=== PATIENT | female | born 1945 | race Two or more races ===

== ENCOUNTER 2020-08-11 18:40 | Emergency (ER) | payer MEDICAID, OTHER ==
[~2020-08-11] VITALS: Ht 147.3 cm; Wt 68.0 kg
[2020-08-11 19:12] VITALS: BP 162/76
--- NOTE | 2020-08-11 19:21 | NUR ---
Per son at bedside, pt had injury to her R thumb x3 weeks ago. Today is her first visit to the ED in regards to pt R thumb. Pt has not been taking any medications for her pain. There is obvious deformity to the R thumb. Circulation and sensory nerves are intact, but patient is unable to move the digit. Compared to the L thumb, the R thumb is swollen.
--- NOTE | 2020-08-11 19:52 | Emergency Room Report ---
History of Present Illness General Chief Complaint: Upper Extremity Injury Present Illness HPI 75 YO female presents to the ED c/o 09/29 in severity tenderness, swelling, and obvious deformity of the right thumb.s/p fall 3 weeks ago. denies hitting her head, Denies midline neck or back pain. Denies numbness tingling or loss of sensation or gross motor movements of the extremities, incontinence of bowel or bladder. Denies CP, Palpitations, LOC, AMS, dizziness, Changes in Vision, weakness or a sudden severe headache. hx of DM and HTN. 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 Patient History Past Medical History: DM, HTN Past Surgical History: none Pertinent Family History: none Now: No Immunizations: UTD Reviewed Nursing Documentation: PMH: Agreed; PSxH: Agreed Review of Systems All Other Systems: negative except mentioned in HPI Physical Exam Vital Signs Date Time Temp Pulse Resp B/P (MAP) Pulse Ox O2 Delivery O2 Flow Rate FiO2 08/11/20 19:12 98.4 16 162/76 (104) 100 Room Air Sp02 EP Interpretation: reviewed, normal General Appearance: no apparent distress, alert, GCS 15, non-toxic Head: normocephalic, atraumatic Eyes: bilateral eye normal inspection, bilateral eye PERRL ENT: hearing grossly normal, normal voice Neck: full range of motion Respiratory: lungs clear, normal breath sounds, speaking full sentences Cardiovascular #1: regular rate, rhythm, normal capillary refill Musculoskeletal: gait/station normal, tender - Right thumb, swelling - Right thumb at DIP joint. , other - limited ROM of the right thumb Neurologic: alert, motor strength/tone normal, oriented x3, sensory intact, responsive, speech normal Psychiatric: judgement/insight normal Skin: no rash, normal color Procedures Joint Reduction Joint Reduction : Consent: Verbal Joint Reduction Site: other - Right Thumb PIP joint Procedural Sedation: No Reduction Attempts: One Pre-Procedure NV Exam: Yes Post-Procedure NV Exam: Yes Post Joint Reduction Film: joint not reduced Patient Tolerated: Well Complications: None Progress Pt. received local anesthesia / digital block of the right thumb using 1% Lidocaine plain. After trying to reduce the joint with no success the pt. then admitted that injury actually occurred 3 weeks ago. Medical Decision Making PA Attestation Dr. Gan Is my supervising Physician whom patient management has been discussed with. Diagnostic Impression: Primary Impression: Fracture dislocation of thumb Qualified Codes: S62.501A - Fracture of unspecified phalanx of right thumb, initial encounter for closed fracture ER Course Pt. presents to the ED c/o finger deformity and pain s/p mechanical fall. Ddx considered but are not limited to Fracture, dislocation, contusion, Sprain/Strain/Spasm, Vital signs: are WNL, pt. is afebrile H&PE are most consistent with musculoskeletal injury will perform imaging to r/o fractures/dislocations. ORDERS: - X-ray Right hand 3 views - negative for fx, Dislocation, or significant soft tissue injury, per preliminary read in ED, and signed by ROMAN Seaman, my supervising physician has reviewed, and agrees with my interpretation. ED INTERVENTIONS: - Tylenol PO - Finger reduction attempted without success. Later pt. admitted to having finger injured x 3 weeks. -Right thumb spika splint applied by ED RN Pt. remains neurovascularly intact. -D/w Pt. and family member joint must be reduced by hand specialist and most likely will require re-fracture. DISCHARGE: At this time pt. is stable for d/c to home. Will provide printed patient care instructions, and any necessary prescriptions. Care plan and follow up instructions have been discussed with the patient prior to discharge. Other X-Ray Diagnostic Results Other X-Ray Diagnostic Results : # of Views/Limited Vs Complete: 3 View Indication: Pain EP Interpretation: Yes PA Xray: Interpretation reviewed, by supervising MD, and agrees with findings. Interpretation: other - Fx and Dislocation of the IP joint of the first finger on the right hand. Impression: Other - ABNORMAL Electronically Signed by: Tianna Seaman PA-C Last Vital Signs Date Time Temp Pulse Resp B/P (MAP) Pulse Ox O2 Delivery O2 Flow Rate FiO2 08/11/20 19:24 Room Air 08/11/20 19:12 98.4 16 162/76 (104) 100 Status: improved Disposition: HOME, SELF-CARE Condition: Stable Scripts Acetaminophen With Codeine (T#3) (TYLENOL #3 TAB*) Y Tab 1 TAB ORAL Q6H PRN for For Pain, #12 TAB Prov: Tianna Seaman 08/11/20 Referrals: [facility],REFERRING (PCP) [facility] Patient Instructions: Thumb Dislocation Additional Instructions: Take medications as directed. Do not drink alcohol, drive, or operate heavy machinery while taking Tylenol # 3 as this may cause drowsiness. Follow up with an ALTERNATIVE ENERGY TECHNICIAN in 3-5 days, even if your symptoms have resolved. If symptoms persist MRI may be required at the discretion of your PCP or Ortho Specialist. --Please review list of primary care clinics, if you do not already have a primary care provider who can give you an Orthopedic Referral. Return sooner to ED if new symptoms occur, or current symptoms become worse. - Please note that this Emergency Department Report was dictated using [employer] dept tech technology software, occasionally this can lead to erroneous entry secondary to interpretation by the dictation equipment. Tianna Seaman Aug 11, 2020 19:52
[2020-08-11] MEDS ORDERED: ACETAMINOPHEN-1 EAC1 ORAL (20:33)
--- NOTE | 2020-08-11 21:00 | NUR ---
Pt awake and alert, pt fitted with R thumb spica splint, pt reports no pain at this time r/t numbing medication by PA, circulation intact, respirations even and unlabored, otherwise, skin signs normal, neuro intact, OK to discharge per ED Tianna OWENS.
--- NOTE | 2020-08-12 16:14 | Diagnostic Imaging Report ---
EXAM: X-RAY XRAY Fingers 2-3v R CLINICAL HISTORY: Finger pain status post trauma. COMPARISON: None FINDINGS: Total of 3 views of the right thumb were obtained. There is complete dislocation of the first interphalangeal joint. Several ossific fragments noted at the base of the first distal phalanx but they are well corticated. There is a small cortical lucency noted along the volar aspect of the first distal phalangeal base only seen on the lateral view. This may be a small nondisplaced fracture. Metacarpophalangeal joint is anatomic. Soft tissue swelling noted. IMPRESSION: FRACTURE DISLOCATION OF THE FIRST INTERPHALANGEAL JOINT.
== END 2020-08-11 21:02 | disposition home or self-care (01) ==
LOC: EMR 19:47
DX: S62.501A Fracture of unspecified phalanx of right thumb, initial encounter for closed fracture (principal); W19.XXXA Unspecified fall, initial encounter; Y92.9 Unspecified place or not applicable; E11.9 Type 2 diabetes mellitus without complications; I10 Essential (primary) hypertension
CPT/HCPCS: 29125; 73140; Z7502; 99283